=== PATIENT | male | born 1965 | race Caucasian/White ===

== ENCOUNTER 2017-04-16 23:58 | Emergency (ER) | payer SELFPAY ==
[~2017-04-16] VITALS: Ht 177.8 cm; Wt 91.0 kg
[2017-04-17 00:46] LABS: BASOPHILS % 0.8 % (0.0-2.0); EOSINOPHILS % 5.7 % (0.0-5.0); HEMATOCRIT. 44.4 % (42.0-52.0); HEMOGLOBIN. 15.4 g/dL (14.0-18.0); LYMPHOCYTES % 18.7 % (20.0-50.0); MEAN CORPUSCULAR HEMOGLOBIN 32.2 pg (28.0-32.0); MEAN CORPUSCULAR VOLUME 92.7 fL (80.0-94.0); MEAN PLATELET VOLUME 8.5 fl (7.4-10.4); NEUTROPHILS % 65.8 % (40.0-76.0); PLATELET 255 x1000/uL (130-400); RED BLOOD CELL COUNT 4.79 mill/uL (4.7-6.1)
[2017-04-17 00:53] LABS: CHLORIDE 108 mEq/L (98-107)
[2017-04-17 00:57] LABS: INR 1.1; PARTIAL THROMBOPLASTIN TIME 30.5 sec (23.4-31.0); PROTHROMBIN TIME 11.1 sec (9.4-11.6)
[2017-04-17 01:01] LABS: CARBON DIOXIDE 27 mEq/L (21-32)
[2017-04-17 03:15] LABS: CREATINE KINASE 251 IU/L (39-308)
[2017-04-17 04:53] VITALS: BP 144/91
== END 2017-04-17 06:29 | disposition home or self-care (01) ==
LOC: ER 04-17 00:09
DX: R31.0 Gross hematuria (principal); R51 Headache; R03.0 Elevated blood-pressure reading, without diagnosis of hypertension; F17.210 Nicotine dependence, cigarettes, uncomplicated
CPT/HCPCS: 36415; 51702; 80053; 82550; 85025; 85610; 85730; 86850; 86900; 86901; 99284; A4217; Z7610; A4315